=== PATIENT | female | born 1990 | race Caucasian/White ===

== ENCOUNTER 2017-02-17 18:15 | Inpatient (IN) | payer MEDICAID ==
[~2017-02-17] VITALS: Ht 154.9 cm; Wt 77.1 kg
[2017-02-17] VITALS (17 sets, daily range): BP systolic 107–121; BP diastolic 65–88; PULSE 78–91; RESP 18; TEMP 97.5
[2017-02-17] MEDS ORDERED: LACTATED RINGER'S 1000 ML INJ 1,000 ML IV SCH (20:42)
[2017-02-17] MEDS ORDERED: LACTATED RINGER'S 1000 ML INJ 1,000 ML IV PRN (20:42)
[2017-02-17] MEDS ORDERED: MINERAL OIL 10 ML VIAL TOPICAL PRN (20:45)
[2017-02-17] MEDS ORDERED: LIDOCAINE HCL 1% 50 ML VIAL INFIL PRN (20:45)
[2017-02-17] MEDS ORDERED: ONDANSETRON HCL 4 MG/2 ML VIAL IV PRN (20:45)
[2017-02-17] MEDS ORDERED: LIDOCAINE HCL 1% 50 ML VIAL I-DERMAL PRN (20:45)
[2017-02-17] MEDS ORDERED: OXYTOCIN 30 UNITS-500ML PREMIX 500 ML IV ONE (20:45)
[2017-02-17] MEDS ORDERED: CITRIC ACID-SODIUM CITRATE LIQ 30 ML UDC PO SCH (20:45)
[2017-02-17] MEDS ORDERED: SODIUM CHLORID 0.9% 500 ML INJ 500 ML IV PRN (20:45)
--- NOTE | 2017-02-17 20:52 | PD ---
HPI Chief Complaint Contractions Date Seen: February 17, 2017 (Penny Childs MD R2) Travel History International Travel<30 Days: No Contact w/Intl Traveler<30Days: No Known Affected Area: No (Penny Childs MD R2) History of Present Illness HPI Patient is a 26 year old at 40-3/7 weeks gestation who presents today with contractions. Positive movement. No gush or leaking of fluid. No vaginal bleeding or discharge. care with Breanne Guerin. (Penny Childs MD R2 ) History Past Medical History Medical History: Denies Significant Hx (Penny Childs MD R2) Obstetric History Obstetric History s/p x 2 at term (Penny Childs MD R2) Past Surgical History Surgical History: No Previous Surgery (Penny Childs MD R2) Family History Family History: Negative (Penny Childs MD R2) Social History Alcohol Use: No Tobacco Use: No Substance Abuse: No (Penny Childs MD R2) Allergies-Medications (Allergen,Severity, Reaction): Coded Allergies: No Known Allergies (Unverified , 04/27/14) Home Meds Reported Medications Vit W/ Ferrous Fumara ( Multi +Dha 27-0.8-228 mg)1 Cap Cap1 Tab PO DAILY 02/17/17 Review of Systems Except as stated in HPI: all other systems reviewed are Neg General / Constitutional: No: Fever, Chills Eyes: No: Visual changes HENT: No: Headaches Cardiovascular: No: Chest Pain or Discomfort Respiratory: No: Short of Breath Gastrointestinal: Abdominal Pain, No: Nausea, Vomiting Genitourinary: Pelvic Pain, No: Discharge, Vaginal Bleeding Musculoskeletal: No: Edema Psychiatric: No: Substance Abuse (Penny Childs MD R2) Physical Exam Narrative GENERAL: Well-nourished, well-developed patient. SKIN: Warm and dry. HEAD: Normocephalic and atraumatic. EYES: No scleral icterus. No injection or drainage. ENT: No nasal drainage noted. Mucous membranes pink. Airway patent. NECK: Supple, trachea midline. No JVD. CARDIOVASCULAR: Regular rate and rhythm without murmurs, gallops, or rubs. RESPIRATORY: Breath sounds equal bilaterally. No accessory muscle use. ABDOMEN/GI: Abdomen soft, non-tender, bowel sounds present, no rebound, no guarding Gravid to 40 weeks size GENITOURINARY: External Genitalia: intact and normal in appearance BUS glands: normal Cervix: midposition Dilatation: 2 Effacement: 80 Station: -2 Presentation: vertex Membranes: intact Uterine Contractions: irregular FHT's: Category: I Baseline: 135 Reactive: + Variability: moderate Decels: none EXTREMITIES: No cyanosis or edema. BACK: Nontender without obvious deformity. No CVA tenderness. NEUROLOGICAL: Awake and alert. Motor and sensory grossly within normal limits. Normal speech. (Penny Childs MD R2) Data Data Vital Signs Reviewed: Yes Orders Ob (2e) Additional Admit Info (02/17/17 20:42) Vital Signs (Adult) .ON ADMISSION (02/17/17 20:42) ^ Labor Status (02/17/17 20:42) ^ Non Stress Test (02/17/17 20:42) ^ Hydration (02/17/17 20:42) Admit To Inpatient (02/17/17 ) Code Status (02/17/17 20:42) Vital Signs (Adult) .Per protocol (02/17/17 20:42) Activity Oob Ad Padmini (02/17/17 20:42) Heart (02/17/17 20:42) Amnioinfusion (02/17/17 20:42) Urinary Catheter Management .ONCE (02/17/17 20:42) Diet Npo (02/18/17 Breakfast) Lactated Ringer's 1000 Ml Inj (Lr 1000 M (02/17/17 20:42) Lactated Ringer's 1000 Ml Inj (Lr 1000 M (02/17/17 20:42) Sodium Chlorid 0.9% 500 Ml Inj (Ns 500 M (02/17/17 20:45) Sodium Chlor 0.9% 1000 Ml Inj (Ns 1000 M (02/17/17 21:02) Lidocaine 1% Inj (50 Ml) (Xylocaine 1% I (02/17/17 20:45) Citric Acid-Sodium Citrate Liq (Bicitra (02/17/17 20:45) Ondansetron Inj (Zofran Inj) (02/17/17 20:45) Fentanyl Inj (Fentanyl Inj) (02/17/17 20:45) Fentanyl Inj (Fentanyl Inj) (02/17/17 20:45) Complete Blood Count With Diff (02/17/17 20:42) Hold Clot (02/17/17 20:42) Abo/Rh Blood Type (02/17/17 20:42) Urinalysis - C+S If Indicated (02/17/17 20:42) Resp Oxygen Non Rebreathe Mask (02/17/17 ) ^ Epidural / Intrathecal Infus (02/17/17 20:42) Oxytocin 30 Units-500ml Premix (Pitocin (02/17/17 20:45) Lidocaine 1% Inj (50 Ml) (Xylocaine 1% I (02/17/17 20:45) Light Mineral Oil (Muri-Lube Oil) (02/17/17 20:45) Inpatient Certification (02/17/17 ) (Penny Childs MD R2) MDM Medical Record Reviewed: Yes Narrative Course / MDM Patient is a 26 year old at 40-3/7 weeks gestation. 1. IUP- Category I tracing, reassuring. Continue routine care. 2. IOL- Patient is post-dates and a multip with a favorable cervix. Will admit for labor. 3. GBS negative 4. Anticipate vaginal delivery. stuart Cannon (Penny Childs MD R2) Physician Communication The exam, history, and the medical decision-making described in the above note were completed with the assistance of the resident provider. I reviewed and agree with the findings presented. I attest that I had a [id number] encounter with the patient on the same day, and personally performed and documented my assessment and findings in the medical record. (Natasha Cannon MD) Penny Childs MD R2 February 17, 2017 20:52 Natasha Cannon MD February 17, 2017 21:50
[2017-02-17] MEDS ORDERED: OXYTOCIN 30 UNITS-500ML PREMIX 500 ML IV SCH (21:00)
[2017-02-17] MEDS ORDERED: SODIUM CHLOR 0.9% 1000 ML INJ 1,000 ML IV PRN (21:02)
[2017-02-17] MEDS ORDERED: PRENCAP10 PO (21:24)
[2017-02-17 22:17] LABS: BLOOD, URINE NEG (NEG); GLUCOSE,URINE NEG (NEG); KETONE, URINE NEG (NEG); NITRITE,URINE NEG (NEG); SQUAMOUS EPITHELIAL CELL URINE 1 /hpf (0-5); URINE COLOR YELLOW (YELLW/STRAW)
[2017-02-17 22:18] LABS: COMMENT (UR) CULT NOT INDICATED; CULTURE IF INDICATED CULT NOT INDICATED
[2017-02-17 22:21] LABS: AUTOMATED NEUTROPHIL # 5.5 TH/MM3 (1.8-7.7); BASOPHIL % 0.3 % (0.0-2.0); EOSINOPHIL # 0.2 TH/MM3 (0-0.4); EOSINOPHIL % 2.5 % (0.0-4.0); HEMO FLAGS DIFF FINAL; LYMPHOCYTE # 2.4 TH/MM3 (1.0-4.8); MEAN CELL VOLUME 89.7 FL (80.0-100.0); MEAN CORPUSCULAR HEMOGLOBIN 30.5 PG (27.0-34.0); MONO % 8.6 % (0.0-8.0); NEUT % 61.6 % (16.0-70.0); PLATELET COUNT 223 TH/MM3 (150-450); RED BLOOD COUNT 4.12 MIL/MM3 (4.00-5.30); RED CELL DISTRIBUTION WIDTH 14.3 % (11.6-17.2)
[2017-02-17] MEDS ORDERED: fentaNYL 2MCG-BUPIV 0.125% INJ 100 ML ONE (22:54)
[2017-02-18] VITALS (27 sets, daily range): BP systolic 102–149; BP diastolic 57–96; PULSE 75–108; RESP 16–18; TEMP 97.7–98.2
[2017-02-18] MEDS ORDERED: BENZOCAINE 20% TOPICAL SPRAY 60 ML CAN TOPICAL PRN (02:45)
[2017-02-18] MEDS ORDERED: ZOLPIDEM TARTRATE 5 MG TAB PO PRN (02:45)
[2017-02-18] MEDS ORDERED: ONDANSETRON ODT 4 MG TAB PO PRN (02:45)
[2017-02-18] MEDS ORDERED: oxyCODONE/ACETAMINOPHEN 5 MG/325 MG TAB PO PRN ×2 (02:45)
[2017-02-18] MEDS ORDERED: ACETAMINOPHEN 325 MG TAB PO PRN (02:45)
[2017-02-18] MEDS ORDERED: DOCUSATE SODIUM 50 MG/SENNA 8.6 MG TAB PO PRN (02:45)
[2017-02-18] MEDS ORDERED: SODIUM CHLORIDE 0.9% FLUSH 10 ML FLUSH IV FLUSH PRN (02:45)
[2017-02-18] MEDS ORDERED: ALUMINUM/MAGNESIUM/SIMETH 30 ML CUP PO PRN (02:45)
[2017-02-18] MEDS ORDERED: WITCH HAZEL 50%/GLYCERIN 12.5% 40 PAD JAR TOPICAL PRN (02:45)
--- NOTE | 2017-02-18 02:46 | PD.OB.DELI ---
Delivery Date: February 18, 2017 Anesthesia: Epidural Episiotomy: None Vaginal Delivery: Normal, Spontaneous Presentation: Occiput anterior Nuchal Cord: None Delayed cord clamping (45 sec): Yes Shoulder Dystocia: Suprapubic pressure given, Chaz maneuver done : Male One Minute : 8 Five Minute : 9 Weight: 10 pounds 6 ounces Placenta: Spontaneous delivery, Intact, 3 vessel cord Laceration: No lacerations Additional Information Patient is a 26 year old delivered at 40-3/7 weeks gestation over an intact perineum. Apgars were 8/9. weight was 10 pounds 6 ounces. Placenta delivered spontaneously intact with 3-vessel cord. There were no lacerations. Turtle sign was recognized during delivery. Chaz maneuver was performed along with suprapubic pressure given. was delivered using continuous traction after approximately 15 seconds. (Rafa Noe MD R1) Attestation I was scrubbed and directly supervised or performed the entire delivery. Turtle sign was observed during delivery. Dr. Noe applied downward traction, but shoulder did not immediately deliver. I stepped in at this point. Patient's legs were flexed into Chaz position, and RN applied suprapubic pressure directed toward patient's right side to dislodge the anterior shoulder. I applied steady downward traction, and anterior (right) shoulder delivered in approximately 15 seconds. Body slowly followed with usual maneuvers. (Natasha Cannon MD) Rafa Noe MD R1 February 18, 2017 02:46 Natasha Cannon MD February 18, 2017 02:54
[2017-02-18] MEDS ORDERED: SODIUM CHLORIDE 0.9% FLUSH 10 ML FLUSH IV FLUSH SCH (09:00)
[2017-02-18] MEDS: IBUPROFEN 600 MG TAB PO PRN (14:19)
[2017-02-18] MEDS ORDERED: DIPHTH/TETANUS/ACEL PERTUSSIS (BOOSTER) 0.5 ML VIAL/PFS IM ONE (16:00)
[2017-02-18] MEDS ORDERED: MEASLES, MUMPS, RUBELLA VACCINE 0.5 ML VIAL SQ ONE (16:00)
[2017-02-19] MEDS: IBUPROFEN 600 MG TAB PO PRN (06:20)
[2017-02-19 08:00] VITALS: BP 107/66; PULSE 76; RESP 22; TEMP 97.5
--- NOTE | 2017-02-19 08:30 | HHI.OB ---
Subjective Post Day: 1 Remarks day #1. AFVSS overnight. Pain minimal. Decreased lochia. Denies dysuria. No breast tenderness. Appetite good. No nausea or vomiting. Endorses flatus. Positive bowel movement. Ambulating well. Denies calf pain, shortness of breath, or cough. Otherwise, she is doing well this morning and has no other complaints. Objective Vitals/I&O Vital Signs Date Time Temp Pulse Resp B/P Pulse Ox O2 Delivery O2 Flow Rate FiO2 02/19/17 08:00 97.5 76 22 107/66 02/18/17 16:23 98.2 89 16 149/80 02/18/17 09:30 108 16 105/57 02/18/17 09:30 97.7 Objective Remarks GENERAL: Well-nourished, well-developed patient. CARDIOVASCULAR: Regular rate and rhythm without murmurs, gallops, or rubs. RESPIRATORY: Breath sounds equal bilaterally. No accessory muscle use. ABDOMEN/GI: Abdomen soft, non-tender. Fundus: Firm, non-tender at umbilicus. GENITOURINARY: Light to moderate bleeding. EXTREMITIES: No cyanosis or edema, non-tender, without signs of DVT. Medications and IVs Current Medications Medications (Trade) Dose Ordered Sig/Juan Route Start Time Stop Time Status Last Admin (NS Flush) 2 ml BID IV FLUSH 02/18/17 09:00 (NS Flush) 2 ml UNSCH PRN IV FLUSH 02/18/17 02:45 (Tylenol) 650 mg Q4H PRN PO 02/18/17 02:45 (Motrin) 600 mg Q6H PRN PO 02/18/17 02:45 02/19/17 06:20 (Percocet 5-325 Mg) 1 tab Q4H PRN PO 02/18/17 02:45 (Percocet 5-325 Mg) 2 tab Q4H PRN PO 02/18/17 02:45 (Americaine 20% Top Spr) 1 spray Q4H PRN TOPICAL 02/18/17 02:45 (Tucks Pads) 1 applic QID PRN TOPICAL 02/18/17 02:45 (Alanna-Colace) 2 tab Q12H PRN PO 02/18/17 02:45 (Ambien) 5 mg HS PRN PO 02/18/17 02:45 (Mag-Al Plus Susp Liq) 15 ml Q8H PRN PO 02/18/17 02:45 (Zofran Odt) 4 mg Q6H PRN PO 02/18/17 02:45 Assessment/Plan Assessment and Plan 26y/o who is PPD#1 s/p . -Continue routine care. -Percocet and Motrin PRN pain. -Encouraged OOB. Advised pelvic rest for 6 wks. -Will need a f/u appt. within 6 wks. -D/c in today/tomorrow Cheko Quinones MD R1 February 19, 2017 08:30
[2017-02-19] MEDS ORDERED: IBUP-232 PO (10:17)
[2017-02-19] MEDS ORDERED: SENN1TAB PO (10:17)
--- NOTE | 2017-02-19 10:17 | HHI.DCPOC ---
Discharge Care Plan Diagnosis: (1) Report Symptoms to Your Doctor -Temperate above 100.5 degrees -Redness, of incision or excessive or foul smelling drainage -Unusual pain or calf pain -Increased vaginal bleeding -Painful or difficulty urinating -Feelings of extreme sadness or anxiety after 2 weeks Goals to Promote Your Health * To prevent worsening of your condition and complications * To maintain your health at the optimal level Directions to Meet Your Goals Take your medications as prescribed Follow your dietary instruction Follow activity as directed Ensure plenty of rest for recovery Drink fluids for hydration Keep your appointments as scheduled Take your immunizations and boosters as scheduled If your symptoms worsen call your PCP, if no PCP go to Urgent Care Center or Emergency Room Smoking is Dangerous to Your Health. Avoid second hand smoke Call the 24-hour crisis hotline for domestic abuse at Cheko Quinones MD R1 February 19, 2017 10:17
== END 2017-02-19 13:16 | disposition home or self-care (01) | DRG 775 ==
LOC: HOBED 18:15 → H2EB 20:52 → H1EA 02-18 04:11
PROVIDERS: ADMIT Obstetrics & Gynecology; ATTEND Obstetrics & Gynecology
PROC: 10E0XZZ Delivery of Products of Conception, External Approach (ICD-10-PCS; principal; 2017-02-17)
PROC: 00HU33Z Insertion of Infusion Device into Spinal Canal, Percutaneous Approach (ICD-10-PCS; 2017-02-17)
PROC: 3E0R3CZ (ICD-10-PCS; 2017-02-17)
DX: O66.0 Obstructed labor due to shoulder dystocia (principal); Z37.0 Single live birth; Z3A.40 40 weeks gestation of pregnancy
CPT/HCPCS: 59025; 81001; 84112; 85025; 86900; 86901; 90715; 99285; J2405; J2590; J3010; J7120